=== PATIENT | male | born 1995 | race Caucasian/White ===

== ENCOUNTER 2018-03-12 16:01 | Emergency (ER) | payer OTHER ==
[~2018-03-12] VITALS: Ht 177.8 cm; Wt 92.5 kg
[2018-03-12 16:01] VITALS: BP_SYST 129
[2018-03-12] MEDS ORDERED: IBUPROFEN 800 MG TABLET PO ONE (18:00)
[2018-03-12] MEDS ORDERED: HYDROcodone/ACETAMIN 10-325 MG TAB PO ONE (18:00)
[2018-03-12 19:24] VITALS: BP_SYST 121
== END 2018-03-12 19:24 | disposition home or self-care (01) ==
LOC: SED 16:01
DX: S20.219A Contusion of unspecified front wall of thorax, initial encounter (principal); S43.402A Unspecified sprain of left shoulder joint, initial encounter; S13.4XXA Sprain of ligaments of cervical spine, initial encounter; V43.52XA Car driver injured in collision with other type car in traffic accident, initial encounter; Y93.89 Activity, other specified; Y92.411 Interstate highway as the place of occurrence of the external cause; Y99.8 Other external cause status; R03.0 Elevated blood-pressure reading, without diagnosis of hypertension
CPT/HCPCS: 71045; 72040-TC; 73030; 99284